=== PATIENT | male | born 1995 | race Native Hawaiian/Other Pacific Islander ===

== ENCOUNTER 2016-04-17 18:49 | Emergency (ER) | payer BC, OTHER ==
--- NOTE | 2016-04-17 21:07 | ED ---
General Adult HPI - General Chief complaint: Chest Pain Stated complaint: CHEST PAIN, TIGHTNESS Time Seen by Provider: 04/17/16 20:11 Source: patient, RN notes reviewed Mode of arrival: ambulatory Limitations: no limitations - History of Present Illness Initial comments: This is a 20-year-old male presents with a chief complaint of chest pain. Patient states this is been happening to him intermittently for approximately a month and a half. Patient states he had one episode of chest pain today that lasted approximately 30 minutes and improved with rest. She does not complain of chest pain right now in the EC. Patient states he normally gets chest pain with his panic attacks, but has begun to get chest pain with physical activity. Patient states these episodes can last up to 30 minutes and the chest pain gets better with rest. Patient states the pain is made worse with deep breaths and he sometimes develops shortness of breath along with the chest pain. Patient also states he feels lightheaded with these chest pain episodes. Patient states the only medication he takes is Xanax as needed for anxiety. Patient also complains of a scrotal mass that has been present since he was 16 years old. Patient states he was told that he had a mass on his vas deferens. Patient thinks that this area is getting larger and more tender. Patient denies any recent fever, chills, abdominal pain, nausea/vomiting/diarrhea, cough, congestion, urethral discharge, hematochezia back pain, numbness, tingling, hematuria, headache, or visual changes, or any other complaints. - Related Data Home Medications Medication Instructions Recorded Confirmed ALPRAZolam [Xanax] 0.25 - 0.5 mg PO DAILY PRN 04/17/16 04/17/16 Acetaminophen/Diphenhydramine 1 tab PO HS 04/17/16 04/17/16 [Tylenol PM 500-25mg] diphenhydrAMINE HCL [Benadryl] 25 - 50 mg PO HS 04/17/16 04/17/16 Allergies Allergy/AdvReac Type Severity Reaction Status Date / Time latex Allergy Unknown IRRITATED Verified 04/17/16 20:27 SKIN potassium clavulanate Allergy Unknown Rash/Hives Verified 04/17/16 20:27 [From Augmentin] amoxicillin trihydrate Allergy Rash/Hives Verified 04/17/16 20:27 [From Augmentin] Review of Systems ROS Statement: Those systems with pertinent positive or pertinent negative responses have been documented in the HPI. ROS Other: All systems not noted in ROS Statement are negative. Past Medical History Additional Past Medical History / Comment(s): ANXIETY, ECZEMA History of Any Multi-Drug Resistant Organisms: None Reported Past Surgical History: Adenoidectomy, Tonsillectomy Additional Past Surgical History / Comment(s): LYMPH NODE REMOVED FROM NECK. Past Anesthesia/Blood Transfusion Reactions: Motion Sickness, Postoperative Nausea & Vomiting (PONV) Past Psychological History: Anxiety, Depression, Panic Disorder Smoking Status: Never smoker Past Alcohol Use History: None Reported Past Drug Use History: None Reported - Past Family History Mother Family Medical History: Asthma, COPD, Rheumatoid Arthritis (RA) Additional Family Medical History / Comment(s): carpal tunnel General Exam - General Exam Comments Initial Comments: General: The patient is awake and alert, in no distress, and does not appear acutely ill. Eye: Pupils are equal, round and reactive to light, extra-ocular movements are intact. No nystagmus. There is normal conjunctiva bilaterally. No signs of icterus. Ears: TMs pink and pearly with intact cone of light bilaterally. Normal external ear canals Nose: Nasal turbinates pink and moist Mouth and throat: There are moist mucous membranes and no oral lesions. Neck: The neck is supple, there is no tenderness or JVD. Cardiovascular: There is a tachycardic rate and regular rhythm. No murmur, rub or gallop is appreciated. Respiratory: Lungs are clear to auscultation, respirations are non-labored, breath sounds are equal. No wheezes, stridor, rales, or rhonchi. Gastrointestinal: Soft, non-distended, non-tender abdomen without masses or organomegaly noted. There is no rebound or guarding present. No CVA tenderness. Bowel sounds are unremarkable. Genitourinary: Approximately 1 cm soft scrotal mass on the left side. This area is mildly tender to palpation. No visible swelling, urethral discharge or erythema. Musculoskeletal: Normal ROM, no tenderness. Strength 5/5. Sensation intact. Radial and posterior tibial pulses equal bilaterally 2+. Neurological: A&O x 3. CN II-XII intact, There are no obvious motor or sensory deficits. Coordination appears grossly intact. Speech is normal. Skin: Skin is warm and dry and no rashes or lesions are noted. Psychiatric: Cooperative, appropriate mood & affect, normal judgment. Limitations: no limitations Course Vital Signs 04/17/16 04/17/16 19:17 22:49 Temperature 98.8 F Pulse Rate 116 H 86 Respiratory 20 18 Rate Blood Pressure 158/92 128/56 O2 Sat by Pulse 98 99 Oximetry EKG Findings - EKG Comments: EKG Findings:: An EKG was done at 1940 and reviewed showing normal sinus rhythm with a rate of 98 bpm, OK interval of 128, QRS duration of 86, QTC of 421. No acute ST changes. Medical Decision Making - Medical Decision Making This is a 20-year-old male presents with chief complaint of chest pain. Patient also complains of a scrotal mass that this had was 16 years old. On physical exam approximately 1 cm soft scrotal mass on the left side. This area is mildly tender to palpation. No visible swelling, urethral discharge or erythema. Patient with a tachycardic rate but regular rhythm. No murmur, rub, gallop. Lungs are clear to auscultation bilaterally. Elevated pulse noted and this was rechecked and had decreased. Labs were drawn and reviewed. D-dimer, TSH and troponin were negative for any acute processes. A chest x-ray was done and reviewed showing: No acute cardiopulmonary process. Scrotal ultrasound was done and reviewed showing: #1 suspected small varicocele on the left side. #2 no torsion bilaterally. #[address] Claros. An EKG was done at 19:40 and reviewed showing normal sinus rhythm with a rate of 98 bpm, OK interval of 128, QRS duration of 86, QTC of 421. No acute ST changes. Patient did not have any recurrent episodes of chest pain in the EC today. Discussed results with patient. I discussed close follow-up with his primary care physician. I discussed return parameters. Discussed that patient should follow up with PCP in one to 2 days or return to the [facility] for any worsening symptoms or for any further concerns. Patient was receptive to this plan and patient will be discharged home. I discussed his case with attending physician Dr. Geller who agrees the plan as stated above. - Lab Data Result diagrams: 04/17/16 21:12 04/17/16 21:12 Lab Results 04/17/16 04/17/16 04/17/16 Range/Units 21:12 21:12 21:12 WBC 7.4 (4.0-11.0) k/uL RBC 5.41 (4.30-5.90) m/uL Hgb 15.4 (13.0-17.5) gm/dL Hct 45.4 (39.0-53.0) % MCV 84.1 (80.0-100.0) fL MCH 28.4 (25.0-35.0) pg MCHC 33.8 (31.0-37.0) g/dL RDW 13.1 (11.5-15.5) % Plt Count 234 (150-450) k/uL Neutrophils % 58 % Lymphocytes % 34 % Monocytes % 5 % Eosinophils % 1 % Basophils % 1 % Neutrophils # 4.3 (1.3-7.7) k/uL Lymphocytes # 2.5 (1.0-4.8) k/uL Monocytes # 0.4 (0-1.0) k/uL Eosinophils # 0.1 (0-0.7) k/uL Basophils # 0.1 (0-0.2) k/uL D-Dimer <0.17 (<0.60) mg/L FEU Sodium 144 (137-145) mmol/L Potassium 4.4 (3.5-5.1) mmol/L Chloride 103 (98-107) mmol/L Carbon Dioxide 28 (22-30) mmol/L Anion Gap 13 mmol/L BUN 17 (9-20) mg/dL Creatinine 1.10 (0.66-1.25) mg/dL Est GFR (MDRD) Af Amer >60 (>60 ml/min/1.73 sqM) Est GFR (MDRD) Non-Af >60 (>60 ml/min/1.73 sqM) Glucose 101 H (74-99) mg/dL Calcium 9.9 (8.4-10.2) mg/dL Total Bilirubin 0.5 (0.2-1.3) mg/dL AST 31 (17-59) U/L ALT 37 (21-72) U/L Alkaline Phosphatase 97 (38-126) U/L Troponin I (0.000-0.034) ng/mL Total Protein 8.2 (6.3-8.2) g/dL Albumin 5.0 (3.5-5.0) g/dL TSH 0.764 (0.465-4.680) mIU/L 04/17/16 Range/Units 21:12 WBC (4.0-11.0) k/uL RBC (4.30-5.90) m/uL Hgb (13.0-17.5) gm/dL Hct (39.0-53.0) % MCV (80.0-100.0) fL MCH (25.0-35.0) pg MCHC (31.0-37.0) g/dL RDW (11.5-15.5) % Plt Count (150-450) k/uL Neutrophils % % Lymphocytes % % Monocytes % % Eosinophils % % Basophils % % Neutrophils # (1.3-7.7) k/uL Lymphocytes # (1.0-4.8) k/uL Monocytes # (0-1.0) k/uL Eosinophils # (0-0.7) k/uL Basophils # (0-0.2) k/uL D-Dimer (<0.60) mg/L FEU Sodium (137-145) mmol/L Potassium (3.5-5.1) mmol/L Chloride (98-107) mmol/L Carbon Dioxide (22-30) mmol/L Anion Gap mmol/L BUN (9-20) mg/dL Creatinine (0.66-1.25) mg/dL Est GFR (MDRD) Af Amer (>60 ml/min/1.73 sqM) Est GFR (MDRD) Non-Af (>60 ml/min/1.73 sqM) Glucose (74-99) mg/dL Calcium (8.4-10.2) mg/dL Total Bilirubin (0.2-1.3) mg/dL AST (17-59) U/L ALT (21-72) U/L Alkaline Phosphatase (38-126) U/L Troponin I <0.012 (0.000-0.034) ng/mL Total Protein (6.3-8.2) g/dL Albumin (3.5-5.0) g/dL TSH (0.465-4.680) mIU/L Disposition Clinical Impression: Varicocele Disposition: HOME SELF-CARE Condition: Good Instructions: Cannabis Abuse (ED), Anxiety (ED), Varicocele (ED) Additional Instructions: May use [id number] Tylenol and/or Motrin for any pain. Please follow-up with family doctor in the next 2 days of symptoms have not improved. Please return to emergency room if the symptoms increase or worsen or for any other concerns. Referrals: None,Stated [Primary Care Provider] - 1-2 days Fatoumata Mills MD [STAFF PHYSICIAN] - 1-2 days Time of Disposition: 23:23
[2016-04-17 21:31] LABS: Basophils # (A) 0.1 k/uL (0-0.2); Basophils % (A) 1 %; CH 29.5; CHCM 35.3; Eosinophils # (A) 0.1 k/uL (0-0.7); Eosinophils % (A) 1 %; HCT 45.4 % (39.0-53.0); HDW 2.85; HGB 15.4 gm/dL (13.0-17.5); Luc # (Auto) 0.12; Luc % (Auto) 2; Lymphocytes # (A) 2.5 k/uL (1.0-4.8); Lymphocytes % (A) 34 %; MCH 28.4 pg (25.0-35.0); MCHC 33.8 g/dL (31.0-37.0); MCV 84.1 fL (80.0-100.0); Mean Platelet Volume 7.7; Monocytes # (A) 0.4 k/uL (0-1.0); Monocytes % (A) 5 %; Neutrophils # (A) 4.3 k/uL (1.3-7.7); Neutrophils % (A) 58 %; RBC 5.41 m/uL (4.30-5.90); RDW 13.1 % (11.5-15.5); WBC 7.4 k/uL (4.0-11.0); WBC (Perox) 7.08
[2016-04-17 21:43] LABS: ALT 37 U/L (21-72); AST 31 U/L (17-59); Alkaline Phosphatase 97 U/L (38-126); Anion Gap 13 mmol/L; Blood Urea Nitrogen 17 mg/dL (9-20); Calcium 9.9 mg/dL (8.4-10.2); Carbon Dioxide 28 mmol/L (22-30); Chloride 103 mmol/L (98-107); Glucose 101 mg/dL (74-99); Non-African American GFR(MDRD) >60 (>60 ml/min/1.73 sqM); Potassium 4.4 mmol/L (3.5-5.1); Sodium 144 mmol/L (137-145); Total Bilirubin 0.5 mg/dL (0.2-1.3); Total Protein 8.2 g/dL (6.3-8.2)
--- NOTE | 2016-04-17 21:54 | XR ---
EXAMINATION TYPE: XR chest 2V DATE OF EXAM: 04/17/2016 9:08 PM COMPARISON: 08/21/2014 INDICATION: Pain, chest tightness TECHNIQUE: Frontal and lateral views of the chest are obtained. FINDINGS: The heart size is normal. The pulmonary vasculature is normal. The lungs are clear. IMPRESSION: 1. No acute pulmonary process.
[2016-04-17 22:50] VITALS: RESP 18
--- NOTE | 2016-04-17 23:11 | US ---
EXAMINATION TYPE: US scrotum with doppler. Grayscale and color Doppler Duplex imaging performed of [facility] scrotum. DATE OF EXAM: 04/17/2016 10:36 PM COMPARISON: NONE CLINICAL HISTORY: Pain on left. EXAM MEASUREMENTS: TESTICLES: Right Testicle: 5.0 x 1.8 x 2.3 cm Left Testicle: 4.9 x 1.8 x 2.6 cm EPIDIDYMIS HEAD: Right Epididymis: 0.8 cm Left Epididymis: 0.8 cm TECHNOLOGIST IMPRESSION: Doppler performed to assess for testicular vascularity; good bilateral color flow and waveforms are s een. There is no evidence of testicular torsion. Presence of hydroceles: no Presence of left probable varicocele, otherwise normal appearing study. No abnormal masses are noted in both testicles with mostly homogenous echo pattern. No torsion change s are noted in both testicles with normal vascular flow. There is suspected small varicocele on the left side. No significant hydrocele changes are present. B ilateral epididymis appear grossly unremarkable. IMPRESSION: 1. Suspected small varicocele on the left side. 2. No torsion bilaterally. 3. No hydrocephalus.
[2016-04-17 23:38] VITALS: BP 124/73; PULSE 89; TEMP 98
== END 2016-04-17 23:38 | disposition home or self-care (01) ==
LOC: EC 18:49
DX: R07.9 Chest pain, unspecified (principal); I86.1 Scrotal varices; F41.9 Anxiety disorder, unspecified; Z79.899 Other long term (current) drug therapy; Z88.1 Allergy status to other antibiotic agents; Z88.0 Allergy status to penicillin
CPT/HCPCS: 36415; 71020; 76870; 80053; 84443; 84484; 85025; 85379; 93005; 93975; 99285

== ENCOUNTER 2016-06-07 13:21 | Inpatient (IN) | payer SELFPAY ==
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
[2016-06-07] MEDS ORDERED: MAGNESIUM HYDROXIDE 2,400 MG/10 ML CUP PO PRN (19:29)
[2016-06-07] MEDS ORDERED: ACETAMINOPHEN TAB 325 MG TAB PO PRN (19:29)
[2016-06-07] MEDS ORDERED: MAG HYDROX/AL HYDROX/SIMETH 30 ML CUP PO PRN (19:29)
[2016-06-07] MEDS ORDERED: LORazepam 1 MG TAB PO PRN (19:34)
[2016-06-07 21:20] VITALS: BMI 22.9
[2016-06-08 09:31] LABS: Basophils % (A) 1 %; CH 29.6; CHCM 33.5; Eosinophils # (A) 0.1 k/uL (0-0.7); Eosinophils % (A) 1 %; HCT 50.8 % (39.0-53.0); HDW 2.64; HGB 16.3 gm/dL (13.0-17.5); Luc # (Auto) 0.17; Luc % (Auto) 3; Lymphocytes # (A) 2.9 k/uL (1.0-4.8); Lymphocytes % (A) 43 %; MCH 28.5 pg (25.0-35.0); MCHC 32.1 g/dL (31.0-37.0); MCV 88.9 fL (80.0-100.0); Mean Platelet Volume 6.9; Monocytes # (A) 0.3 k/uL (0-1.0); Monocytes % (A) 5 %; Neutrophils # (A) 3.2 k/uL (1.3-7.7); Neutrophils % (A) 48 %; RBC 5.72 m/uL (4.30-5.90); RDW 14.1 % (11.5-15.5); WBC 6.7 k/uL (4.0-11.0)
[2016-06-08 09:32] LABS: ALT 41 U/L (21-72); AST 30 U/L (17-59); Alkaline Phosphatase 83 U/L (38-126); Anion Gap 12 mmol/L; Blood Urea Nitrogen 11 mg/dL (9-20); Calcium 10.1 mg/dL (8.4-10.2); Carbon Dioxide 28 mmol/L (22-30); Chloride 103 mmol/L (98-107); Glucose 132 mg/dL (74-99); Non-African American GFR(MDRD) >60 (>60 ml/min/1.73 sqM); Potassium 4.3 mmol/L (3.5-5.1); Sodium 143 mmol/L (137-145); Total Protein 8.2 g/dL (6.3-8.2)
[2016-06-08 09:58] LABS: Appearance,Urine Clear (Clear); Bilirubin,Urine Negative (Negative); Glucose,Urine (UA) Negative (Negative); Ketones,Urine Negative (Negative); Leukocyte Esterase,Urine Negative (Negative); Nitrite,Urine Negative (Negative); Protein,Urine Trace (Negative); UA Billing (MACRO vs. MICRO) CHEM; Urobilinogen,Urine <2.0 mg/dL (<2.0)
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
[2016-06-08] MEDS: DICYCLOMINE 10 MG CAP PO SCH ×2 (11:55→20:58)
[2016-06-08] MEDS: clonazePAM 0.5 MG TAB PO PRN (14:43)
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
[2016-06-08] MEDS: PARoxetine 20 MG TAB PO SCH (20:58)
[2016-06-09] MEDS: DICYCLOMINE 10 MG CAP PO SCH ×2 (09:37→21:04)
--- NOTE | 2016-06-09 10:05 | P.PN ---
Progress Note - Text Interval history: The patient is found in group he follows me to an interview room. He reports his mood is better. He found the Klonopin effective for anxiety. We discussed that the Klonopin will need to be a temporary measure as were waiting for the Paxil to demonstrate efficacy. He reports continued difficulty sleeping at night. He has been attending groups. He has a support meeting scheduled for tomorrow. He is endorsing no suicidal thoughts and is feeling more hopeful. He states he's been with 22 sexual partners and he is concerned he is at risk for an infectious disease as he often does not use protection he requests HIV and hepatitis screening. Mental status exam: The patient is alert he seated calmly eye contact is appropriate speech is fluent. He reports his mood is improved. He is endorsing no acute suicidal or homicidal ideation intent or plan. There is no evidence of psychosis he is endorsing no auditory or visual hallucinations. He demonstrates no verbal or physical aggressiveness. Insight and judgment seem to be improving. He remains oriented to person place and date. Affect is constricted. Plan: The patient's will continue on the Paxil and Klonopin, we will add trazodone for sleep as needed. We will go ahead and order an HIV and hepatitis panel. He has a support meeting scheduled for tomorrow. I anticipate discharging him in the next 1-2 days depending on his clinical progress.
[2016-06-09] MEDS ORDERED: traZODone HCL 50 MG TAB PO PRN (10:06)
[2016-06-09 11:05] LABS: Hepatitis B Surface Ag Index 0.07
[2016-06-09 11:11] LABS: Hepatitis B Core IgM Index 0.06
[2016-06-09 11:23] LABS: Hepatitis C Virus IgG Index 0.02
[2016-06-09 11:27] LABS: Hepatitis C Virus IgG Ab Negative (Negative)
[2016-06-09] MEDS: clonazePAM 0.5 MG TAB PO PRN (18:04)
[2016-06-09] MEDS: PARoxetine 20 MG TAB PO SCH (21:04)
[2016-06-10 06:58] VITALS: BP 97/49; PULSE 93; RESP 16; TEMP 98
--- NOTE | 2016-06-10 08:57 | P.DS ---
Providers Date of admission: 06/07/16 19:15 Expected date of discharge: 06/10/16 Attending physician: Colt Childers Consults: 06/07/16 19:29 Consult Physician Routine Consulting Provider: Elias Matta Consult Reason/Comments: H and P and Medical follow up Do you want consulting provider notified?: Yes Primary care physician: Stated None - Discharge Diagnosis(es) (1) Major depressive disorder, recurrent severe without psychotic features Current Visit: Yes Status: Acute Priority: High (2) Generalized anxiety disorder Current Visit: Yes Status: Acute Priority: High Hospital Course: Brief summary of admission note: The patient is a 20-year-old male who was admitted to the mental health unit through the emergency room for acute suicidal ideation. He presented with a plan of cutting himself. He reported feeling numb sleep had been impaired appetite disturbed energy low. He reported hopelessness thinking. He endorsed generalized symptoms of anxiety. He endorsed a past traumatic event which could've subsequently led to a posttraumatic stress disorder scenario. For full details please refer to my psychiatric evaluation dated 06/08/2016. Summary of hospital course: The patient was admitted to the mental health unit voluntarily. We reviewed his presenting symptoms and medication options. We initiated Paxil 20 mg at bedtime Klonopin 0.5 mg up to daily as needed trazodone 50 mg at bedtime as needed. 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 He expressed some concern that he had unprotected sex with several men and was worried he could've contracted hepatitis or HIV. The hepatitis panel came back negative HIV testing is still pending. The patient demonstrated no agitated behavior. He has a support meeting scheduled for this morning. He reported a quick resolution of suicidal ideation. He's been cooperative with groups. He is able to describe future oriented thinking. He has several questions related to his medications that are relevant. He does not feel he needs inpatient dependency treatment. Mental status exam: The patient is a thin male appearing his stated age she has several visible tattoos on his upper extremities. Eye contact is appropriate speech is fluent spontaneous nonpressured. He reports his mood is "much better ". He denies having any suicidal or homicidal ideation intent or plan. He endorses no auditory or visual hallucinations no specific delusions. There is no objective evidence of psychosis. He does not present hypomanic or manic. Insight and judgment improved. Cognitively he remains oriented to person place and date. He demonstrates no verbal or physical aggressiveness. Affect is euthymic he is able to demonstrate an appropriate range of affect. Impressions 1. Major depressive disorder recurrent severe without psychosis, generalized anxiety disorder, rule out PTSD, rule out alcohol use disorder 2. Cluster B traits 3. Mild asthma, IBS Plan: The patient's will be discharged from the mental health unit today. Social work will arrange his outpatient mental health follow-up. We discussed the need for him to abstain from alcohol use or any other illicit substances. He does not feel he needs inpatient chemical dependency treatment to accomplish that goal. He will continue on Paxil 20 mg at bedtime, trazodone 50 mg at bedtime as needed, Klonopin 0.5 mg up to daily as needed dispense #14 no refill. There is no imminent safety risk he is appropriate for transition to outpatient mental healthcare. He is instructed to return to the hospital with any acute safety concerns. Patient Condition at Discharge: Stable Plan - Discharge Summary Discharge Medication List ALPRAZolam [Xanax] 0.5 mg PO DAILY PRN 06/07/16 [History] Follow up Appointment(s)/Referral(s): None,Stated [Primary Care Provider] - 1 Week
[2016-06-10] MEDS: DICYCLOMINE 10 MG CAP PO SCH (09:00)
[2016-06-12 07:40] LABS: HIV-1/HIV-2 Ab Screen NONREAC (NON REAC)
== END 2016-06-10 12:04 | disposition home or self-care (01) | DRG 885 ==
LOC: EC 13:21 → 3MHU 19:15
PROVIDERS: ADMIT Psychiatry & Neurology Psychiatry; ATTEND Psychiatry & Neurology Psychiatry
DX: F33.2 Major depressive disorder, recurrent severe without psychotic features (principal); R45.851 Suicidal ideations; F41.1 Generalized anxiety disorder; F43.10 Post-traumatic stress disorder, unspecified; J45.909 Unspecified asthma, uncomplicated; K58.9 Irritable bowel syndrome, unspecified; G47.9 Sleep disorder, unspecified; F12.90 Cannabis use, unspecified, uncomplicated; F60.9 Personality disorder, unspecified; Z59.0 Homelessness; Z91.410 Personal history of adult physical and sexual abuse; Z91.5 Personal history of self-harm; Z79.899 Other long term (current) drug therapy; Z81.3 Family history of other psychoactive substance abuse and dependence; Z81.8 Family history of other mental and behavioral disorders
CPT/HCPCS: 80053; 80074; 80306; 81003; 82075; 84443; 85025; 87389; 99285

== ENCOUNTER 2017-10-30 16:21 | Emergency (ER) | payer OTHER ==
[2017-10-30] MEDS ORDERED: ACETAMINOPHEN TAB 500 MG TAB PO STA (17:02)
[2017-10-30] MEDS ORDERED: IBUPROFEN 800 MG TAB PO STA (17:02)
--- NOTE | 2017-10-30 17:36 | XR ---
EXAMINATION TYPE: XR knee complete 3 views bilateral, XR tibia fibula 2 views bilateral DATE OF EXAM: 10/30/2017 COMPARISON: NONE HISTORY: 22-year-old male bilateral knee pain after running 3 days ago FINDINGS: Knees: Incidental bone island lateral femoral condyle on the right. There are small knee joint effusions on both sides. Extensor mechanisms are intact. No acute fracture, subluxation, or dislocation. Bilateral Tibia/fibula: No acute fracture. Ankle articulation appears grossly intact sides. IMPRESSION: 1. Knees: Small nonspecific knee joint effusions on both sides. No acute osseous abnormality seen. 2. Tibias/fibulas: No acute osseous abnormality seen.
--- NOTE | 2017-10-30 17:44 | ED ---
General Adult HPI - General Chief complaint: Extremity Injury, Lower Stated complaint: knees ache Time Seen by Provider: 10/30/17 16:39 Source: patient, RN notes reviewed, old records reviewed Mode of arrival: ambulatory Limitations: no limitations - History of Present Illness Initial comments: This is a 22-year-old male the ER. Patient coming in with knee pain after running. Patient states he's is a continued pain, no Motrin or Tylenol no racing. Patient states the pain is sided 2 days after running and has persisted into today. He is not about 6 days - Related Data Home Medications Medication Instructions Recorded Confirmed No Known Home Medications 10/30/17 10/30/17 Allergies Allergy/AdvReac Type Severity Reaction Status Date / Time latex Allergy Unknown IRRITATED Verified 10/30/17 17:00 SKIN potassium clavulanate Allergy Unknown Rash/Hives Verified 10/30/17 17:00 [From Augmentin] amoxicillin trihydrate Allergy Rash/Hives Verified 10/30/17 17:00 [From Augmentin] Review of Systems ROS Statement: Those systems with pertinent positive or pertinent negative responses have been documented in the HPI. ROS Other: All systems not noted in ROS Statement are negative. Past Medical History Additional Past Medical History / Comment(s): ECZEMA, IBS History of Any Multi-Drug Resistant Organisms: None Reported Past Surgical History: Adenoidectomy, Appendectomy, Tonsillectomy Additional Past Surgical History / Comment(s): LYMPH NODE REMOVED FROM NECK that was benign, wisdom teeth extraction. Past Anesthesia/Blood Transfusion Reactions: Motion Sickness, Postoperative Nausea & Vomiting (PONV) Past Psychological History: Anxiety, Depression, Panic Disorder Smoking Status: Never smoker Past Alcohol Use History: Occasional Past Drug Use History: Marijuana - Past Family History Father Additional Family Medical History / Comment(s): Father is age 36 with history of bipolar disorder and anxiety. Brother(s) Additional Family Medical History / Comment(s): Patient has 2 half brothers with no major medical problems. Patient has a total of 5 half sisters with no major medical problems. Patient does not have any children. Mother Family Medical History: Asthma, COPD, Rheumatoid Arthritis (RA) Additional Family Medical History / Comment(s): Mother is 37 years old with history of rheumatoid arthritis, COPD, degenerative disc disease, recovering drug addiction, carpal tunnel General Exam Limitations: no limitations General appearance: alert, in no apparent distress Head exam: Present: atraumatic, normocephalic, normal inspection Eye exam: Present: normal appearance, PERRL, EOMI. Absent: scleral icterus, conjunctival injection, periorbital swelling ENT exam: Present: normal exam, mucous membranes moist Neck exam: Present: normal inspection. Absent: tenderness, meningismus, lymphadenopathy Respiratory exam: Present: normal lung sounds bilaterally. Absent: respiratory distress, wheezes, rales, rhonchi, stridor Cardiovascular Exam: Present: regular rate, normal rhythm, normal heart sounds. Absent: systolic murmur, diastolic murmur, rubs, gallop, clicks GI/Abdominal exam: Present: soft, normal bowel sounds. Absent: distended, tenderness, guarding, rebound, rigid Extremities exam: Present: normal inspection, full ROM, normal capillary refill. Absent: tenderness, pedal edema, joint swelling, calf tenderness Back exam: Present: normal inspection Neurological exam: Present: alert, oriented X3, CN II-XII intact Psychiatric exam: Present: normal affect, normal mood Skin exam: Present: warm, dry, intact, normal color. Absent: rash Course Vital Signs 10/30/17 16:24 Temperature 98.8 F Pulse Rate 98 Respiratory 18 Rate Blood Pressure 142/87 O2 Sat by Pulse 99 Oximetry - Reevaluation(s) Reevaluation #1: 10/30/17 17:43 Patient is able to ambulate without significant difficulty Medical Decision Making - Medical Decision Making 22 male to ER for evaluation of bilateral knee pain after running x-ray knees negative. Patient can be discharged - Radiology Data Radiology results: report reviewed (X-ray bilateral knees negative), image reviewed Disposition Clinical Impression: Bilateral knee pain Disposition: HOME SELF-CARE Condition: Good Instructions: Knee Sprain (ED), Knee Pain (ED) Is patient prescribed a controlled substance at d/c from ED?: No Referrals: None,Stated [Primary Care Provider] - 1-2 days
[2017-10-30 18:07] VITALS: BP 118/60; PULSE 84; RESP 16; TEMP 98.5
== END 2017-10-30 18:00 | disposition home or self-care (01) ==
LOC: EC 16:21
DX: M25.561 Pain in right knee (principal); M25.562 Pain in left knee; Z88.0 Allergy status to penicillin; Z91.040 Latex allergy status
CPT/HCPCS: 99284